=== PATIENT | male | born 1975 | race Two or more races ===

== ENCOUNTER 2020-10-08 05:32 | Day surgery (SDC) | payer BC ==
[2020-10-06 10:17] LABS: MICROSCOPIC NOT IND
[2020-10-06 10:18] LABS: BASOPHILS % (AUTO) 1 % (0-1); EOSINOPHILS % (AUTO) 1 % (1-7); LYMPHOCYTES % (AUTO) 22 % (22-44); MEAN CORPUSCULAR HEMOGLOBIN 31.7 pg (27.5-34.5); MEAN CORPUSCULAR HGB CONC 34.2 g/dL (33.2-36.2); MEAN PLATELET VOLUME 8.8 fL (7.4-10.4); MONOCYTES % (AUTO) 6 % (2-9); NEUTROPHILS % (AUTO) 71 % (42-75); PLATELET COUNT 223 x10^3/uL (130-400); RED BLOOD COUNT 5.04 x10^6/uL (4.38-5.82); RED CELL DISTRIBUTION WIDTH 12.8 % (9.4-14.8)
[2020-10-06 10:22] LABS: MD NO
[2020-10-06 10:25] LABS: ANION GAP 4 mmol/L (5-15); CALCIUM 9.7 mg/dL (8.5-10.1); CHLORIDE 108 mmol/L (98-107); CREATININE 0.92 mg/dL (0.7-1.3)
[2020-10-06 10:27] LABS: PROTHROMBIN TIME 10.7 Seconds (9.6-11.5)
[~2020-10-08] VITALS: Ht 185.4 cm; Wt 91.0 kg
[~2020-10-08 05:32] MED LIST: ALBU8.5H8 INH; CARI-389 PO; IBUP-1623 PO; MULT-449 PO; OXYC-293 PO; prednisone PO; vitamin C PO
[2020-10-08 06:03] VITALS: BP 155/92
[2020-10-08] MEDS ORDERED: EPINEPHRINE 1 MG/ML, 1ML ONE (06:16)
[2020-10-08] MEDS ORDERED: VANCOMYCIN 1,000 MG ONE (06:16)
[2020-10-08] MEDS ORDERED: BUPIVACAINE/PF 0.5% ONE (06:16)
[2020-10-08] MEDS ORDERED: BACITRACIN 50,000 UNIT ONE (06:17)
[2020-10-08] MEDS ORDERED: FENTANYL PF 250 MCG/5ML ONE ×2 (06:20→07:03)
[2020-10-08] MEDS ORDERED: MIDAZOLAM 1 MG/ML, 2ML ONE (06:20)
[2020-10-08] MEDS ORDERED: PROPOFOL 100 ML ONE (06:24)
[2020-10-08] MEDS ORDERED: LACTATED RINGERS 1,000 ML IV SCH (06:30)
[2020-10-08] MEDS ORDERED: CHLORHEXIDINE 15 ML UDC MM ONE (06:30)
[2020-10-08] MEDS ORDERED: GLYCOPYRROLATE 0.2MG/1ML, 5ML ONE (06:47)
[2020-10-08] MEDS ORDERED: PROPOFOL 10 MG/ML, 20ML ONE (06:47)
[2020-10-08] MEDS ORDERED: CEFAZOLIN 1,000 MG ONE (06:47)
[2020-10-08] MEDS ORDERED: NEOSTIGMINE 1 MG/ML, 10ML ONE (06:47)
[2020-10-08] MEDS ORDERED: ROCURONIUM 10MG/ML,5ML ONE (06:47)
[2020-10-08] MEDS ORDERED: ONDANSETRON 2MG/ML, 2ML IVPush PRN (07:00)
[2020-10-08] MEDS ORDERED: HYDROmorphone 1 MG/ML, 1ML INJ IVPush PRN (07:00)
[2020-10-08] MEDS ORDERED: ACETAMINOPHEN 325 MG TABLET PO PRN (07:00)
[2020-10-08] MEDS ORDERED: OXYcodone 5 MG/5 ML ORAL.SOL UDC PO PRN (07:00)
[2020-10-08] MEDS ORDERED: LABETALOL 5MG/ML, 20ML IV PRN (07:00)
[2020-10-08] MEDS ORDERED: morphine SULFATE 10 MG/ML, 1ML IVPush PRN (07:00)
[2020-10-08] MEDS ORDERED: MEPERIDINE/PF 25MG/0.5ML IVPush PRN (07:00)
[2020-10-08] MEDS ORDERED: hydrALAzine 20 MG/ML, 1ML IV PRN (07:00)
[2020-10-08] MEDS ORDERED: ALBUTEROL HFA 90 MCG/SPRAY INH SCH (08:30)
[2020-10-08] MEDS ORDERED: OXYcodone/APAP 5/325MG TABLET PO PRN (08:30)
[2020-10-08] MEDS ORDERED: ACETAMINOPHEN 650 MG/20.3 ML UDC ONE (08:51)
[2020-10-08] MEDS ORDERED: OXYcodone 5 MG/5 ML ORAL.SOL UDC ONE (08:51)
[2020-10-08] MEDS ORDERED: FENTANYL PF 100 MCG/2ML ONE ×2 (08:51→09:19)
[2020-10-08] MEDS: FENTANYL PF 100 MCG/2ML IV PRN ×4 (08:52→09:20)
[2020-10-08] MEDS ORDERED: CARISOPRODOL 350 MG TABLET PO SCH (09:00)
[2020-10-08] MEDS ORDERED: CARISOPRODOL 350 MG TABLET PO PRN (10:00)
== END 2020-10-08 11:40 | disposition home or self-care (01) ==
LOC: OUT 05:32 → EDSTATUS 12:30
PROVIDERS: ATTEND Neurological Surgery
DX: M51.17 Intervertebral disc disorders with radiculopathy, lumbosacral region (principal); M48.061 Spinal stenosis, lumbar region without neurogenic claudication; J45.909 Unspecified asthma, uncomplicated; Z20.822 Contact with and (suspected) exposure to COVID-19; Z79.01 Long term (current) use of anticoagulants; Z79.891 Long term (current) use of opiate analgesic; Z79.899 Other long term (current) drug therapy
CPT/HCPCS: 36415; 63042; 80048; 81003; 85025; 85610; 85730; 95938; 95941; J0171; J0690; J2250; J2704; J2710; J3010; J3370; J7120; U0003